=== PATIENT | male | born 1960 | race Caucasian/White ===

== ENCOUNTER 2018-02-14 10:15 | Inpatient (IN) | payer BC ==
[~2018-02-14] VITALS: Ht 188 cm; Wt 149.0 kg
[2018-02-24 12:09] LABS: CLARITY,URINE CLEAR (Clear); COLOR,URINE YELLOW (Yellow); GLUCOSE, URINE NEGATIVE (Neg); KETONES,URINE NEGATIVE (Neg); LEUKOCYTE ESTERASE ,URINE NEGATIVE (Neg); NITRITES, URINE NEGATIVE (Neg); OCCULT BLOOD,URINE NEGATIVE (Neg); PROTEIN,URINE NEGATIVE (Neg); UROBILINOGEN,URINE 0.2 E.U/dL (0.2-1.0)
[2018-02-24 12:09] LABS: BASOPHILS % (AUTO) 0.5 % (0-1); EOSINOPHILS # (AUTO) 0.2 X10'3 (0-0.9); LYMPHOCYTES # (AUTO) 1.8 X10'3 (1.1-4.8); LYMPHOCYTES % (AUTO) 23.8 % (21-51); MEAN CORPUSCULAR HEMOGLOBIN 28.4 PG (27.0-31.0); MEAN CORPUSCULAR HGB CONC 33.9 % (33.0-36.5); MEAN CORPUSCULAR VOLUME 83.8 FL (78-98); MEAN PLATELET VOLUME 8.1 FL (7.4-10.4); MONOCYTES # (AUTO) 0.7 X10'3 (0-0.9); MONOCYTES % (AUTO) 9.9 % (2-12); NEUTROPHILS # (AUTO) 4.6 X10'3 (1.8-7.7); NEUTROPHILS % (AUTO) 62.8 % (42-75); PRE OP HEMATOCRIT 55.6 % (42.0-52.0); PRE OP PLATELET COUNT 204 X10'3 (140-440); RED BLOOD COUNT 6.64 X10'6 (4.70-6.10); RED CELL DISTRIBUTION WIDTH 19.6 % (11.5-14.5)
[2018-02-24 12:14] LABS: PRE OP HEMOGLOBIN 18.8 g/dL (14.0-17.9)
[2018-02-24 12:15] LABS: UA COLLECTION TYPE CLN CATCH MIDSTREAM
[2018-02-24 12:18] LABS: PRE OP INR 1.1 INR; PRE OP PROTIME 11.1 SECONDS (9.0-12.0)
[2018-02-24 12:23] LABS: ALBUMIN 3.7 G/DL (3.4-5.0); ALBUMIN/GLOBULIN RATIO 0.8 (1.1-1.5); ALKALINE PHOSPHATASE 69 IU/L (46-116); BLOOD UREA NITROGEN 17 MG/DL (7-18); CALCIUM 9.5 MG/DL (8.5-10.1); CHLORIDE 102 MMOL/L (99-107); CREATININE 1.21 MG/DL (0.60-1.10); PRE OP ALT 67 U/L (30-65); PRE OP ANION GAP 5 (8-16); PRE OP AST 38 U/L (10-37); PRE OP BILIRUB, TOTAL 0.9 MG/DL (0.0-1.0); PRE OP GLUCOSE 99 MG/DL (70-104); PRE OP POTASSIUM 4.3 MMOL/L (3.4-5.1); PRE OP SODIUM 138 MMOL/L (135-145); TOTAL CARBON DIOXIDE 31.2 MMOL/L (24-32); TOTAL PROTEIN 8.2 G/DL (6.4-8.2); eGFR 62 ML/MIN
[2018-02-24] MEDS ORDERED: MULT-38 PO (13:02)
[2018-02-24] MEDS ORDERED: CALC1TAB PO (13:02)
[2018-02-24] MEDS ORDERED: HYDR12.5 PO (13:02)
[2018-02-24] MEDS ORDERED: CHOL100046 PO (13:02)
[2018-02-24] MEDS ORDERED: FURO80TA87 PO (13:02)
[2018-02-24] MEDS ORDERED: METO100T7 PO (13:02)
[2018-02-24] MEDS ORDERED: ENAL10TA78 PO (13:02)
[2018-02-24] MEDS ORDERED: VITA1TAB20 PO (13:02)
[2018-02-24] MEDS ORDERED: IRON1CAP34 PO (13:02)
[2018-02-24] MEDS ORDERED: GLIM1TAB46 PO (13:02)
[2018-02-24] MEDS ORDERED: DOCU-28 PO (13:02)
[2018-02-28] VITALS (17 sets, daily range): BP systolic 107–140; BP diastolic 62–86
[2018-02-28] MEDS ORDERED: ringers solution, lacted 1,000 ML IV SCH ×2 (05:00→13:27)
[2018-02-28] MEDS ORDERED: acetaminophen 325mg tablet PO ONE (05:30)
[2018-02-28] MEDS ORDERED: gabapentin 300mg capsule PO ONE (05:30)
[2018-02-28] MEDS ORDERED: DOCUMENT DATE & TIME OF BETA-BLOCKER PO ONE (05:30)
[2018-02-28] MEDS ORDERED: famotidine 20mg tablet PO ONE (05:30)
[2018-02-28] MEDS ORDERED: ceFAZolin inj. 3,000 MG in normal saline 100ml IV soln 100 ML IV ONE (05:30)
[2018-02-28] MEDS ORDERED: vancomycin inj 1,500 MG in normal saline 300ml IV soln IV ONE (05:30)
[2018-02-28] MEDS ORDERED: tranexamic acid inj. 1,000 MG in normal saline 100ml IV soln 90 ML IV ONE ×2 (05:30→12:25)
[2018-02-28] MEDS ORDERED: oxyCODONE SR 10mg (sust. release) tab PO ONE (05:30)
[2018-02-28] MEDS ORDERED: LIDOcaine 1% (10mg/ml) 2ml vial ONE (10:15)
[2018-02-28] MEDS ORDERED: bacitracin inj 150,000 UNIT in sodium chloride irrig. sol 3,000 ML IR ONE (11:00)
[2018-02-28] MEDS ORDERED: ROPIVAcaine 0.5% (5mg/ml) 30ml vial ONE (12:13)
[2018-02-28] MEDS ORDERED: sevoflurane 250ml liquid IH ONE ×2 (12:28→17:45)
[2018-02-28] MEDS ORDERED: fentaNYL /PF 50mcg/ml 5ml ampule ONE (12:32)
[2018-02-28] MEDS ORDERED: midazolam 2 mg/2 ml injection ONE (12:32)
[2018-02-28] MEDS ORDERED: rocuronium 10mg/ml inj IV ONE (12:37)
[2018-02-28] MEDS ORDERED: propofol inj 20 ML IV ONE ×2 (12:38→14:13)
[2018-02-28] MEDS ORDERED: proCHLORperazine 10 MG/2 ml inj IV PRN (13:30)
[2018-02-28] MEDS ORDERED: acetaminophen 1,000mg/100ml IV 100 ML IV PRN (13:30)
[2018-02-28] MEDS ORDERED: morphine 4 MG/ML inj SYRINge IV PRN ×2 (13:30)
[2018-02-28] MEDS ORDERED: ondansetron/PF 4mg/2ml inj IV PRN ×2 (13:30→14:45)
[2018-02-28] MEDS ORDERED: meperidine/PF 25mg/ml syringe IV PRN ×2 (13:30)
[2018-02-28] MEDS ORDERED: ceFAZolin 1000mg inj ONE (14:11)
[2018-02-28] MEDS ORDERED: fentaNYL/PF 50MCG/1 ML 2ML syringe ONE (14:14)
[2018-02-28] MEDS ORDERED: magnesium hydroxide 30ml (MOM) UD suspension PO PRN (14:45)
[2018-02-28] MEDS ORDERED: glucagon, human recombinant 1mg kit SUBCUT PRN (14:45)
[2018-02-28] MEDS ORDERED: insulin Lispro (HumaLOG) vial - multi-dose SQ SCH (14:45)
[2018-02-28] MEDS ORDERED: dextrose 50%-water 50ml dispensing syringe IV PRN ×2 (14:45)
[2018-02-28] MEDS ORDERED: acetaminophen 325mg tablet PO PRN (14:45)
[2018-02-28] MEDS ORDERED: furosemide 40mg tablet PO SCH (14:45)
[2018-02-28] MEDS ORDERED: MESSAGE TO PHARMACY PO ONE (14:45)
[2018-02-28] MEDS ORDERED: diphenhydrAMINE 25mg capsule PO PRN ×2 (14:45)
[2018-02-28] MEDS ORDERED: bisacodyl 10mg suppository rectal RC PRN (14:45)
[2018-02-28] MEDS ORDERED: dextrose ORAL solution 15 GM/59 ML bottle PO PRN ×2 (14:45)
[2018-02-28] MEDS: meperidine/PF 25mg/ml syringe IV PRN ×2 (15:51→16:06)
[2018-02-28] MEDS: HYDROmorphone 1 mg/ml syringe IV PRN (16:29)
[2018-02-28] MEDS: ceFAZolin 1GM/D5W- ADD-VANTAGE 50 ML IV SCH (16:35)
[2018-02-28] MEDS ORDERED: vancomycin/NS 1 GM ADD-VANTAGE 250 ML IV SCH (20:00)
[2018-02-28] MEDS: oxyCODONE/APAP 10/325mg tablet PO PRN (20:34)
[2018-02-28] MEDS: ascorbic acid 500mg tablet PO SCH (20:35)
[2018-02-28] MEDS: sennosides 8.6mg tablet PO SCH (20:35)
[2018-02-28] MEDS: gabapentin 300mg capsule PO SCH (20:36)
[2018-02-28] MEDS: insulin glargine (Lantus) pen - multi-dose SQ SCH (21:00)
[2018-02-28] MEDS: metoprolol succinate 25mg (24-HOUR) SR. Tablet PO SCH (21:00)
[2018-03-01] MEDS: oxyCODONE/APAP 10/325mg tablet PO PRN ×5 (00:47→21:14)
[2018-03-01] MEDS: ceFAZolin 1GM/D5W- ADD-VANTAGE 50 ML IV SCH (00:52)
[2018-03-01 02:01] VITALS: BP 125/72
[2018-03-01] MEDS: potassium cl 20mEq in 1/2 NS 1,000 ML IV SCH ×2 (05:13→17:09)
[2018-03-01 06:00] VITALS: BP 132/81
[2018-03-01 06:20] LABS: BASOPHILS % (AUTO) 0.3 % (0-1); EOSINOPHILS # (AUTO) 0.2 X10'3 (0-0.9); EOSINOPHILS % (AUTO) 2.3 % (0-6); HEMATOCRIT 45.3 % (42.0-52.0); HEMOGLOBIN 15.5 g/dl (14.0-17.9); LYMPHOCYTES # (AUTO) 1.6 X10'3 (1.1-4.8); LYMPHOCYTES % (AUTO) 20.6 % (21-51); MEAN CORPUSCULAR HEMOGLOBIN 28.8 PG (27.0-31.0); MEAN CORPUSCULAR HGB CONC 34.3 % (33.0-36.5); MEAN CORPUSCULAR VOLUME 83.9 FL (78-98); MEAN PLATELET VOLUME 8.3 FL (7.4-10.4); MONOCYTES # (AUTO) 0.8 X10'3 (0-0.9); MONOCYTES % (AUTO) 10.9 % (2-12); NEUTROPHILS # (AUTO) 5.1 X10'3 (1.8-7.7); NEUTROPHILS % (AUTO) 65.9 % (42-75); PLATELET COUNT 165 X10'3 (140-440); RED CELL DISTRIBUTION WIDTH 18.5 % (11.5-14.5); WHITE BLOOD COUNT 7.8 X10'3 (4.5-11.0)
[2018-03-01 06:43] LABS: ALANINE AMINOTRANSFERASE 42 U/L (12-78); ALBUMIN 2.8 G/DL (3.4-5.0); ALBUMIN/GLOBULIN RATIO 0.8 (1.1-1.5); ALKALINE PHOSPHATASE 39 IU/L (46-116); ANION GAP 4 (8-16); ASPARTATE AMINO TRANSFERASE 39 U/L (10-37); BLOOD UREA NITROGEN 15 MG/DL (7-18); BUN/CREATININE RATIO 10.6 (5.4-32.0); CALCIUM 8.6 MG/DL (8.5-10.1); CHLORIDE 103 MMOL/L (99-107); CREATININE 1.42 MG/DL (0.60-1.10); GLUCOSE 115 MG/DL (70-104); POTASSIUM 4.6 MMOL/L (3.5-5.1); SODIUM 139 MMOL/L (135-145); TOTAL CARBON DIOXIDE 32.3 MMOL/L (24-32); TOTAL PROTEIN 6.1 G/DL (6.4-8.2); eGFR 52 ML/MIN
[2018-03-01 06:44] LABS: INR 1.2 INR; PROTHROMBIN TIME 12.8 SECONDS (9.0-12.0)
[2018-03-01 06:46] LABS: ANISOCYTOSIS 2+; PLATELET ESTIMATE NORMAL
[2018-03-01] MEDS ORDERED: glimepiride 1 MG tablet PO SCH (08:00)
[2018-03-01] MEDS: HYDROchlorothiazide 12.5mg capsule PO SCH (08:03)
[2018-03-01] MEDS: lisinopril 10 MG tablet PO SCH (08:03)
[2018-03-01] MEDS: docusate sod 100mg capsule PO SCH (08:03)
[2018-03-01] MEDS: multivitamins, therapeutics tablet PO SCH (08:04)
[2018-03-01] MEDS: ascorbic acid 500mg tablet PO SCH ×2 (08:04→20:43)
[2018-03-01] MEDS: gabapentin 300mg capsule PO SCH ×3 (08:04→20:43)
[2018-03-01] MEDS: HYDROmorphone 1 mg/ml syringe IV PRN (09:39)
[2018-03-01 10:00] VITALS: BP 127/87
[2018-03-01] MEDS ORDERED: warfarin 7.5mg tablet PO ONE (10:00)
[2018-03-01] MEDS: NUT.TX.GLUC.INTOLER,LAC-FR,REG (BOOST GLUCOSE CONTROL) 237 ML PO SCH ×2 (13:00→18:00)
[2018-03-01 18:00] VITALS: BP 111/57
[2018-03-01] MEDS: celeCOXIB 100mg capsule PO SCH (20:43)
[2018-03-01] MEDS: metoprolol succinate 25mg (24-HOUR) SR. Tablet PO SCH (20:43)
[2018-03-01] MEDS: sennosides 8.6mg tablet PO SCH (20:44)
[2018-03-01] MEDS: insulin glargine (Lantus) pen - multi-dose SQ SCH (21:00)
[2018-03-01 22:00] VITALS: BP 101/55
[2018-03-02] VITALS (7 sets, daily range): BP systolic 88–124; BP diastolic 51–78
[2018-03-02] MEDS: oxyCODONE/APAP 10/325mg tablet PO PRN ×4 (01:16→19:25)
[2018-03-02 05:36] LABS: BASOPHILS % (AUTO) 0.2 % (0-1); EOSINOPHILS # (AUTO) 0.2 X10'3 (0-0.9); EOSINOPHILS % (AUTO) 2.3 % (0-6); HEMATOCRIT 43.2 % (42.0-52.0); HEMOGLOBIN 14.7 g/dl (14.0-17.9); LYMPHOCYTES # (AUTO) 1.8 X10'3 (1.1-4.8); LYMPHOCYTES % (AUTO) 16.6 % (21-51); MEAN CORPUSCULAR HEMOGLOBIN 28.7 PG (27.0-31.0); MEAN CORPUSCULAR VOLUME 84.6 FL (78-98); MEAN PLATELET VOLUME 8.3 FL (7.4-10.4); MONOCYTES # (AUTO) 1.3 X10'3 (0-0.9); MONOCYTES % (AUTO) 12.4 % (2-12); NEUTROPHILS # (AUTO) 7.2 X10'3 (1.8-7.7); NEUTROPHILS % (AUTO) 68.5 % (42-75); PLATELET COUNT 154 X10'3 (140-440); WHITE BLOOD COUNT 10.6 X10'3 (4.5-11.0)
[2018-03-02 05:43] LABS: INR 1.4 INR; PROTHROMBIN TIME 14.5 SECONDS (9.0-12.0)
[2018-03-02] MEDS: potassium cl 20mEq in 1/2 NS 1,000 ML IV SCH ×2 (05:50→18:20)
[2018-03-02 06:03] LABS: ALANINE AMINOTRANSFERASE 36 U/L (12-78); ALBUMIN 2.6 G/DL (3.4-5.0); ALBUMIN/GLOBULIN RATIO 0.8 (1.1-1.5); ALKALINE PHOSPHATASE 41 IU/L (46-116); ANION GAP 5 (8-16); ASPARTATE AMINO TRANSFERASE 32 U/L (10-37); BILIRUBIN,TOTAL 0.8 MG/DL (0.1-1.0); BLOOD UREA NITROGEN 25 MG/DL (7-18); BUN/CREATININE RATIO 10.9 (5.4-32.0); CALCIUM 8.5 MG/DL (8.5-10.1); CHLORIDE 98 MMOL/L (99-107); GLUCOSE 120 MG/DL (70-104); POTASSIUM 4.8 MMOL/L (3.5-5.1); SODIUM 133 MMOL/L (135-145); TOTAL CARBON DIOXIDE 30.4 MMOL/L (24-32); TOTAL PROTEIN 5.9 G/DL (6.4-8.2); eGFR 30 ML/MIN
[2018-03-02 06:21] LABS: PLATELET ESTIMATE NORMAL
[2018-03-02 06:22] LABS: ANISOCYTOSIS 2+; MICROCYTOSIS 1+
[2018-03-02] MEDS: HYDROchlorothiazide 12.5mg capsule PO SCH (07:15)
[2018-03-02] MEDS: lisinopril 10 MG tablet PO SCH (07:16)
[2018-03-02] MEDS: celeCOXIB 100mg capsule PO SCH ×2 (07:20→19:33)
[2018-03-02] MEDS: ascorbic acid 500mg tablet PO SCH ×2 (07:20→19:34)
[2018-03-02] MEDS: gabapentin 300mg capsule PO SCH ×3 (07:20→19:34)
[2018-03-02] MEDS: multivitamins, therapeutics tablet PO SCH (07:20)
[2018-03-02] MEDS: docusate sod 100mg capsule PO SCH (07:20)
[2018-03-02] MEDS: NUT.TX.GLUC.INTOLER,LAC-FR,REG (BOOST GLUCOSE CONTROL) 237 ML PO SCH ×3 (08:00→18:00)
[2018-03-02] MEDS ORDERED: normal saline 1000ml 1,000 ML IV ONE (09:00)
[2018-03-02] MEDS ORDERED: normal saline 500ml IV soln 500 ML IV ONE (09:00)
[2018-03-02] MEDS ORDERED: warfarin 7.5mg tablet PO ONE (10:00)
[2018-03-02] MEDS ORDERED: acetaminophen 325mg tablet PO PRN (14:45)
[2018-03-02] MEDS: sennosides 8.6mg tablet PO SCH (19:34)
[2018-03-02] MEDS: insulin glargine (Lantus) pen - multi-dose SQ SCH (21:00)
[2018-03-02] MEDS: metoprolol succinate 25mg (24-HOUR) SR. Tablet PO SCH (21:08)
[2018-03-03] MEDS: oxyCODONE/APAP 10/325mg tablet PO PRN ×4 (05:49→20:59)
[2018-03-03 06:00] VITALS: BP 113/62
[2018-03-03 06:07] LABS: BASOPHILS % (AUTO) 0.2 % (0-1); EOSINOPHILS # (AUTO) 0.2 X10'3 (0-0.9); EOSINOPHILS % (AUTO) 2.3 % (0-6); HEMATOCRIT 41.7 % (42.0-52.0); HEMOGLOBIN 14.4 g/dl (14.0-17.9); INR 1.5 INR; LYMPHOCYTES # (AUTO) 1.3 X10'3 (1.1-4.8); LYMPHOCYTES % (AUTO) 13.4 % (21-51); MEAN CORPUSCULAR HEMOGLOBIN 29.1 PG (27.0-31.0); MEAN CORPUSCULAR HGB CONC 34.4 % (33.0-36.5); MEAN CORPUSCULAR VOLUME 84.7 FL (78-98); MEAN PLATELET VOLUME 8.3 FL (7.4-10.4); MONOCYTES % (AUTO) 10.2 % (2-12); NEUTROPHILS # (AUTO) 7.2 X10'3 (1.8-7.7); NEUTROPHILS % (AUTO) 73.9 % (42-75); PLATELET COUNT 157 X10'3 (140-440); PROTHROMBIN TIME 14.9 SECONDS (9.0-12.0); RED BLOOD COUNT 4.93 X10'6 (4.70-6.10); RED CELL DISTRIBUTION WIDTH 18.8 % (11.5-14.5); WHITE BLOOD COUNT 9.7 X10'3 (4.5-11.0)
[2018-03-03] MEDS: potassium cl 20mEq in 1/2 NS 1,000 ML IV SCH ×2 (06:50→19:20)
[2018-03-03 06:52] LABS: ALANINE AMINOTRANSFERASE 74 U/L (12-78); ALBUMIN 2.5 G/DL (3.4-5.0); ALBUMIN/GLOBULIN RATIO 0.7 (1.1-1.5); ALKALINE PHOSPHATASE 44 IU/L (46-116); ANION GAP 0 (8-16); ASPARTATE AMINO TRANSFERASE 316 U/L (10-37); BILIRUBIN,TOTAL 0.7 MG/DL (0.1-1.0); BLOOD UREA NITROGEN 27 MG/DL (7-18); BUN/CREATININE RATIO 17.8 (5.4-32.0); CALCIUM 8.5 MG/DL (8.5-10.1); CHLORIDE 101 MMOL/L (99-107); CREATININE 1.52 MG/DL (0.60-1.10); GLUCOSE 117 MG/DL (70-104); POTASSIUM 4.7 MMOL/L (3.5-5.1); SODIUM 134 MMOL/L (135-145); TOTAL CARBON DIOXIDE 32.6 MMOL/L (24-32); TOTAL PROTEIN 6.3 G/DL (6.4-8.2); eGFR 48 ML/MIN
[2018-03-03] MEDS: gabapentin 300mg capsule PO SCH ×3 (07:26→20:02)
[2018-03-03] MEDS: celeCOXIB 100mg capsule PO SCH ×2 (07:26→20:02)
[2018-03-03] MEDS: HYDROchlorothiazide 12.5mg capsule PO SCH (07:26)
[2018-03-03] MEDS: docusate sod 100mg capsule PO SCH (07:26)
[2018-03-03] MEDS: ascorbic acid 500mg tablet PO SCH ×2 (07:27→20:02)
[2018-03-03] MEDS: multivitamins, therapeutics tablet PO SCH (07:27)
[2018-03-03] MEDS: lisinopril 10 MG tablet PO SCH (07:28)
[2018-03-03 07:30] VITALS: BP 123/81
[2018-03-03 07:32] LABS: ANISOCYTOSIS 2+; PLATELET ESTIMATE NORMAL
[2018-03-03] MEDS: NUT.TX.GLUC.INTOLER,LAC-FR,REG (BOOST GLUCOSE CONTROL) 237 ML PO SCH ×3 (08:27→18:00)
[2018-03-03 08:52] LABS: ALANINE AMINOTRANSFERASE 78 U/L (12-78); ALBUMIN 2.6 G/DL (3.4-5.0); ALBUMIN/GLOBULIN RATIO 0.7 (1.1-1.5); ALKALINE PHOSPHATASE 46 IU/L (46-116); ANION GAP 3 (8-16); ASPARTATE AMINO TRANSFERASE 356 U/L (10-37); BILIRUBIN,TOTAL 0.8 MG/DL (0.1-1.0); BLOOD UREA NITROGEN 24 MG/DL (7-18); BUN/CREATININE RATIO 19.5 (5.4-32.0); CALCIUM 8.3 MG/DL (8.5-10.1); CHLORIDE 100 MMOL/L (99-107); CREATININE 1.23 MG/DL (0.60-1.10); GLUCOSE 126 MG/DL (70-104); POTASSIUM 4.5 MMOL/L (3.5-5.1); SODIUM 135 MMOL/L (135-145); TOTAL CARBON DIOXIDE 31.6 MMOL/L (24-32); TOTAL PROTEIN 6.6 G/DL (6.4-8.2); eGFR 61 ML/MIN
[2018-03-03 10:00] VITALS: BP 114/53
[2018-03-03] MEDS ORDERED: warfarin 7.5mg tablet PO ONE (10:00)
[2018-03-03 18:00] VITALS: BP 138/78
[2018-03-03] MEDS: metoprolol succinate 25mg (24-HOUR) SR. Tablet PO SCH (19:17)
[2018-03-03] MEDS: sennosides 8.6mg tablet PO SCH (20:02)
[2018-03-03] MEDS: insulin glargine (Lantus) pen - multi-dose SQ SCH (21:00)
[2018-03-03 22:00] VITALS: BP 115/48
[2018-03-04] MEDS: oxyCODONE/APAP 10/325mg tablet PO PRN ×2 (00:57→05:02)
[2018-03-04 06:00] VITALS: BP 122/81
[2018-03-04] MEDS: docusate sod 100mg capsule PO SCH (07:09)
[2018-03-04] MEDS: ascorbic acid 500mg tablet PO SCH (07:09)
[2018-03-04] MEDS: celeCOXIB 100mg capsule PO SCH (07:09)
[2018-03-04] MEDS: gabapentin 300mg capsule PO SCH (07:09)
[2018-03-04] MEDS: multivitamins, therapeutics tablet PO SCH (07:09)
[2018-03-04] MEDS: HYDROchlorothiazide 12.5mg capsule PO SCH (07:09)
[2018-03-04] MEDS: NUT.TX.GLUC.INTOLER,LAC-FR,REG (BOOST GLUCOSE CONTROL) 237 ML PO SCH (07:09)
[2018-03-04] MEDS: potassium cl 20mEq in 1/2 NS 1,000 ML IV SCH (07:11)
[2018-03-04 07:20] LABS: BASOPHILS % (AUTO) 0.1 % (0-1); EOSINOPHILS # (AUTO) 0.3 X10'3 (0-0.9); EOSINOPHILS % (AUTO) 2.2 % (0-6); HEMATOCRIT 46.5 % (42.0-52.0); HEMOGLOBIN 15.5 g/dl (14.0-17.9); LYMPHOCYTES % (AUTO) 7.4 % (21-51); MEAN CORPUSCULAR HEMOGLOBIN 28.4 PG (27.0-31.0); MEAN CORPUSCULAR HGB CONC 33.4 % (33.0-36.5); MEAN CORPUSCULAR VOLUME 85.1 FL (78-98); MEAN PLATELET VOLUME 8.6 FL (7.4-10.4); MONOCYTES # (AUTO) 1.2 X10'3 (0-0.9); NEUTROPHILS # (AUTO) 10.7 X10'3 (1.8-7.7); NEUTROPHILS % (AUTO) 81.3 % (42-75); PLATELET COUNT 212 X10'3 (140-440); RED BLOOD COUNT 5.46 X10'6 (4.70-6.10); RED CELL DISTRIBUTION WIDTH 18.3 % (11.5-14.5); WHITE BLOOD COUNT 13.1 X10'3 (4.5-11.0)
[2018-03-04 07:27] LABS: INR 1.7 INR; PROTHROMBIN TIME 16.9 SECONDS (9.0-12.0)
[2018-03-04 07:36] LABS: ALANINE AMINOTRANSFERASE 92 U/L (12-78); ALBUMIN 2.7 G/DL (3.4-5.0); ALBUMIN/GLOBULIN RATIO 0.6 (1.1-1.5); ALKALINE PHOSPHATASE 59 IU/L (46-116); ANION GAP 6 (8-16); ASPARTATE AMINO TRANSFERASE 380 U/L (10-37); BLOOD UREA NITROGEN 29 MG/DL (7-18); BUN/CREATININE RATIO 19.5 (5.4-32.0); CALCIUM 9.2 MG/DL (8.5-10.1); CHLORIDE 97 MMOL/L (99-107); CREATININE 1.49 MG/DL (0.60-1.10); GLUCOSE 131 MG/DL (70-104); POTASSIUM 4.3 MMOL/L (3.5-5.1); SODIUM 133 MMOL/L (135-145); TOTAL PROTEIN 7.3 G/DL (6.4-8.2); eGFR 49 ML/MIN
[2018-03-04] MEDS: lisinopril 10 MG tablet PO SCH (08:00)
[2018-03-04] MEDS ORDERED: COU7.5T PO (08:08)
[2018-03-04] MEDS ORDERED: warfarin 7.5mg tablet PO ONE (10:00)
== END 2018-03-04 10:20 | disposition home health service (06) | DRG 470 ==
LOC: EDSTATUS 10:15 → PAS IN 02-28 09:36 → EDSTATUS 02-28 11:30 → ORTHO 4S 02-28 16:20
PROVIDERS: ADMIT Specialist; ATTEND Specialist
PROC: 0SR90JZ Replacement of Right Hip Joint with Synthetic Substitute, Open Approach (ICD-10-PCS; principal; 2018-02-28 12:28)
PROC: 5A09357 Assistance with Respiratory Ventilation, Less than 24 Consecutive Hours, Continuous Positive Airway Pressure (ICD-10-PCS; 2018-03-02)
DX: M16.11 Unilateral primary osteoarthritis, right hip (principal); Z68.41 Body mass index [BMI] 40.0-44.9, adult; I48.91 Unspecified atrial fibrillation; I10 Essential (primary) hypertension; G47.30 Sleep apnea, unspecified; E66.01 Morbid (severe) obesity due to excess calories; E11.9 Type 2 diabetes mellitus without complications; N28.9 Disorder of kidney and ureter, unspecified; Z79.899 Other long term (current) drug therapy
CPT/HCPCS: 36415; 71046; 73502; 80053; 81003; 82948; 83036; 85025; 85610; 85730; 86885; 86900; 86901; 87070; 93005; 97116; 97162; 97530; A6253; A6449; A6455; A7000; C1758; C1776; J0690; J1170; J1815; J2175; J2250; J2704; J2795; J3010; J3370; J3490; J7030; J7120